=== PATIENT | male | born 1990 | race Caucasian/White ===

== ENCOUNTER 2025-04-16 17:31 | Inpatient (IN) | payer OTHER ==
[2025-04-16 18:32] VITALS: BMI 29.9
[2025-04-16] MEDS ORDERED: DICYCLOMINE HCL 10 MG CAPSULE PO PRN (19:04)
[2025-04-16] MEDS ORDERED: MAGNESIUM HYDROX 2400MG/30ML ORAL SUSPENSION 30 ML CUP PO PRN (19:04)
[2025-04-16] MEDS ORDERED: guaiFENesin 600 MG TABLET.ER (FP) PO PRN (19:04)
[2025-04-16] MEDS ORDERED: ACETAMINOPHEN 325 MG TABLET (FP) PO PRN (19:04)
[2025-04-16] MEDS ORDERED: IBUPROFEN 600 MG TABLET (FP) PO PRN (19:04)
[2025-04-16] MEDS ORDERED: LOPERAMIDE HCL 2 MG CAPSULE PO PRN (19:04)
[2025-04-16] MEDS ORDERED: BENZOCAINE/MENTHOL (CHLORASEPTIC ) LOZENGE MM PRN (19:04)
[2025-04-16] MEDS ORDERED: IBUPROFEN 400 MG TABLET (FP) PO PRN (19:04)
[2025-04-16] MEDS ORDERED: MAG HYDROX/AL HYDROX/SIMETH 30 ML UNIT-DOSE CUP PO PRN (19:04)
[2025-04-16] MEDS ORDERED: ONDANSETRON *ODT* 4 MG TABLET SL PRN (19:04)
[2025-04-16] MEDS ORDERED: BISMUTH SUBSALICYLATE 524 MG/30 ML PO PRN (19:04)
[2025-04-16] MEDS ORDERED: POLYETHYLENE GLYCOL (HEALTHYLAX) 3350 17 GM PACKET PO PRN (19:04)
[2025-04-16] MEDS ORDERED: NALOXONE (NARCAN) HCL 4 MG/0.1 ML SPRAY NS PRN (19:04)
[2025-04-16] MEDS ORDERED: BENZONATATE 200 MG CAPSULE PO PRN (19:04)
[2025-04-16] MEDS: THIAMINE 100 MG TABLET PO SCH (22:13)
[2025-04-16] MEDS: hydrOXYzine PAMOATE 25 MG CAPSULE (FP) PO PRN (22:13)
[2025-04-16] MEDS: MELATONIN 5 MG TABLETS PO SCH (22:13)
[2025-04-16] MEDS: METHOCARBAMOL 500 MG TABLET PO PRN (22:13)
[2025-04-17] MEDS: PRENATAL VITAMINS W/ FOLIC ACID TABLET (FP) PO SCH (09:29)
[2025-04-17] MEDS: NICOTINE POLACRILEX 2 MG GUM BUC PRN (09:30)
[2025-04-17 13:00] LABS: MCHC 32.0 g/dl (32.3-36.5); MEAN CELL VOLUME 101.2 fl (79.0-92.2); MEAN PLT VOLUME 10.6 fl (9.4-12.4); RDW 12.5 % (12.0-15.6)
[2025-04-17 13:21] LABS: CO2 25 mmol/L (21-32)
[2025-04-17 13:22] LABS: GLUCOSE,RANDOM 141 mg/dL (74-106)
[2025-04-17 13:24] LABS: CREATININE 0.8 mg/dL (0.55-1.3); SGOT/AST 78 U/L (15-37); SGPT/ALT 127 U/L (13-61)
[2025-04-17 13:26] LABS: TOT PROT 7.2 g/dl (6.4-8.2)
[2025-04-17 13:27] LABS: ALK PHOS 57 U/L (45-117)
[2025-04-17] MEDS: NICOTINE POLACRILEX 2 MG LOZENGE BC PRN (14:58)
[2025-04-17] MEDS: MELATONIN 5 MG TABLETS PO SCH (22:06)
[2025-04-19] MEDS: NALTREXONE HCL 50 MG TABLET PO SCH (11:06)
[2025-04-22 09:08] VITALS: BP 128/75; PULSE 82; RESP 15; TEMP 98.1
== END 2025-04-22 10:21 | disposition home or self-care (01) | DRG 775 ==
LOC: YASAS 17:31 → Y6N 19:39
PROVIDERS: ADMIT Neuromusculoskeletal Medicine & OMM; ATTEND Counselor Addiction (Substance Use Disorder)
PROC: HZ2ZZZZ Detoxification Services for Substance Abuse Treatment (ICD-10-PCS; principal; 2025-04-16)
DX: F10.239 Alcohol dependence with withdrawal, unspecified (principal); F17.210 Nicotine dependence, cigarettes, uncomplicated; G47.00 Insomnia, unspecified
CPT/HCPCS: 36415; 80053; 80305; 80307; 85027; 86780; 93005; 93010